=== PATIENT | male | born 1995 | race Caucasian/White ===

== ENCOUNTER 2020-07-31 10:56 | Emergency (ER) | payer MEDICAID, SELFPAY ==
[~2020-07-31] VITALS: Ht 167.6 cm; Wt 95.3 kg
[2020-07-31 10:58] VITALS: Ht 167.6 cm; Wt 95.3 kg
[2020-07-31 12:46] VITALS: BP 144/92
== END 2020-07-31 12:46 | disposition home or self-care (01) ==
LOC: ED 10:56
DX: U07.1 COVID-19 (principal)
CPT/HCPCS: Q0092; U0003-CS

== ENCOUNTER 2020-08-05 19:16 | Emergency (ER) | payer MEDICAID, SELFPAY ==
[~2020-08-05] VITALS: Ht 167.6 cm; Wt 95.3 kg
[2020-08-05 19:18] VITALS: Ht 167.6 cm; Wt 95.3 kg
[2020-08-05 19:39] VITALS: BP 147/95
== END 2020-08-05 19:39 | disposition home or self-care (01) ==
LOC: ED 19:16
DX: H66.93 Otitis media, unspecified, bilateral (principal)